=== PATIENT | female | born 1960 | race Two or more races ===

== ENCOUNTER 2019-08-12 11:34 | Inpatient (IN) | payer OTHER ==
[~2019-08-12] VITALS: Ht 160 cm; Wt 79.4 kg
[2019-08-26] MEDS ORDERED: FORTAMET500 MG PO (14:22)
[2019-08-26] MEDS ORDERED: NORVASC5 MG PO (14:23)
[2019-08-26] MEDS ORDERED: LOSARTAN-HCTZ1 EACH PO (14:23)
[2019-08-26] MEDS ORDERED: SIMVASTA PO (14:23)
[2019-08-31] MEDS ORDERED: SIMVASTATIN10 MG PO (08:00)
== END 2019-09-03 14:32 | disposition home or self-care (01) | DRG 331 ==
LOC: O/R 08-31 05:59 → SURH 08-31 05:59
PROVIDERS: ADMIT Colon & Rectal Surgery; ATTEND Colon & Rectal Surgery
PROC: 0DJD8ZZ Inspection of Lower Intestinal Tract, Via Natural or Artificial Opening Endoscopic (ICD-10-PCS; 2019-08-31)
PROC: 0DTN4ZZ Resection of Sigmoid Colon, Percutaneous Endoscopic Approach (ICD-10-PCS; principal; 2019-08-31 15:00)
DX: K57.32 Diverticulitis of large intestine without perforation or abscess without bleeding (principal); I10 Essential (primary) hypertension; E11.9 Type 2 diabetes mellitus without complications; Z79.4 Long term (current) use of insulin

== ENCOUNTER 2020-10-06 11:05 | Day surgery (SDC) | payer OTHER ==
[~2020-10-06 11:05] MED LIST: FORTAMET500 MG PO; LOSARTAN-HCTZ1 EACH PO; NORVASC5 MG PO; SIMVASTA PO; SIMVASTATIN10 MG PO
== END 2020-10-06 14:45 | disposition home or self-care (01) ==
LOC: AMB-ENDOS 11:05
PROVIDERS: ATTEND Colon & Rectal Surgery
DX: K57.32 Diverticulitis of large intestine without perforation or abscess without bleeding (principal); K64.3 Fourth degree hemorrhoids; Z20.822 Contact with and (suspected) exposure to COVID-19